=== PATIENT | male | born 1970 | race Asian ===

== ENCOUNTER 2019-02-28 12:58 | Emergency (ER) | payer MEDICAID ==
[~2019-02-28] VITALS: Ht 170.2 cm; Wt 77.1 kg
[2019-02-28 13:07] VITALS: Ht 170.2 cm; Wt 77.1 kg
[2019-02-28 14:49] VITALS: BP 138/81
== END 2019-02-28 14:49 | disposition home or self-care (01) ==
LOC: ED 12:58
DX: S83.91XA Sprain of unspecified site of right knee, initial encounter (principal); E11.9 Type 2 diabetes mellitus without complications; W22.8XXA Striking against or struck by other objects, initial encounter; Y93.89 Activity, other specified; Y92.89 Other specified places as the place of occurrence of the external cause; Y99.8 Other external cause status